=== PATIENT | female | born 1980 ===

== ENCOUNTER 2024-09-28 09:45 | Emergency (ER) | payer SELFPAY | END 2024-09-28 11:19 | disposition home or self-care (01) | LOC: MW.ED 09:45 | DX: J02.0 Streptococcal pharyngitis (principal); Z75.8 Other problems related to medical facilities and other health care | CPT/HCPCS: 87428-QW; 87651-QW; 99284 ==

== ENCOUNTER 2025-05-14 21:53 | Emergency (ER) | payer SELFPAY ==
[2025-05-14 22:09] LABS: APPEARANCE,URINE CLEAR; GLUCOSE,URINE NEGATIVE (NEGATIVE); OCCULT BLOOD,URINE MODERATE (NEGATIVE)
[2025-05-14] MEDS: Ketorolac 30 MG/ML SDV IVPUSH ONE ×2 (22:16→23:07)
[2025-05-14] MEDS: Ondansetron 4 MG/2 ML SDV IVPUSH ONE (22:17)
[2025-05-14 22:19] LABS: BASOPHILS ABSOLUTE AUTO 0.07 K/uL (0.00-0.20); BASOPHILS PERCENT AUTO 0.7 % (0.0-1.0); EOSINOPHILS ABSOLUTE AUTO 0.12 K/uL (0.00-0.45); EOSINOPHILS PERCENT AUTO 1.2 % (0.0-6.0); IMMATURE GRAN ABSOLUTE AUTO 0.02 K/uL (0.00-0.05); IMMATURE GRAN PERCENT AUTO 0.2 % (0.0-0.4); LYMPHOCYTES ABSOLUTE AUTO 2.26 K/uL (1.00-4.80); LYMPHOCYTES PERCENT AUTO 23.4 % (24.0-44.0); MEAN PLATELET VOLUME 8.8 fL (9.4-12.3); MONOCYTES ABSOLUTE AUTO 0.59 K/uL (0.00-0.80); MONOCYTES PERCENT AUTO 6.1 % (0.0-8.0); NEUTROPHILS ABSOLUTE AUTO 6.61 K/uL (1.80-7.70); NEUTROPHILS PERCENT AUTO 68.4 % (41.0-71.0); NRBC ABSOLUTE 0.00 K/uL (0.00-0.02); NRBC PERCENT 0.0 /100WBC (0.0-0.2); PLATELET COUNT,PLT 477 K/uL (150-400); RED BLOOD CELL COUNT 4.35 M/uL (4.10-5.30); WHITE BLOOD CELL COUNT,WBC 9.67 K/uL (3.9-11.3)
[2025-05-14 22:23] LABS: EPITHELIAL CELLS,URINE RARE (NONE-FEW)
[2025-05-14 22:51] LABS: A/G RATIO 0.9 (0.9-1.6); ALANINE AMINOTRANSFERASE,ALT 26 IU/L (14-63); ASPARTATE AMNIOTRANSFERASE,AST 18 IU/L (15-37); BILIRUBIN TOTAL 0.3 mg/dL (0.2-1.0); BLOOD UREA NITROGEN,BUN 9 mg/dL (7.0-18.0); CARBON DIOXIDE,CO2 27.4 mmol/L (21.0-32.0); CHLORIDE,CL 104 mmol/L (98-107); CREATININE 1.1 mg/dL (0.6-1.0); GLUCOSE RANDOM 103 mg/dL (74-106); POTASSIUM,K 3.3 mmol/L (3.5-5.1); PROTEIN TOTAL,TP 7.6 g/dL (6.4-8.2); SODIUM,NA 141 mmol/L (136-145)
[2025-05-14 22:55] LABS: ESTIMATED GFR 64 mL/min (>60)
[2025-05-14] MEDS: droPERidol 2.5 MG/ML SDV IVPUSH ONE (23:07)
[2025-05-14] MEDS: Ondansetron 4 MG Tab.DIS PO ONE (23:38)
== END 2025-05-14 23:42 | disposition home or self-care (01) ==
LOC: MW.ED 21:53
DX: N13.2 Hydronephrosis with renal and ureteral calculous obstruction (principal); R31.9 Hematuria, unspecified; Z79.899 Other long term (current) drug therapy; Z75.3 Unavailability and inaccessibility of health-care facilities
CPT/HCPCS: 36415; 74176; 80053; 81001; 81025; 83690; 85025; 96361; 96374; 96375; 96376; 99284; A9270; J1790; J1885; J2270; J2405; J7030